=== PATIENT | female | born 1965 ===

== ENCOUNTER 2021-02-13 19:35 | Inpatient (IN) | payer OTHER ==
[~2021-02-13] VITALS: Ht 162.6 cm; Wt 81.0 kg
--- NOTE | 2021-02-13 19:45 | NUR ---
PT C/O OF LEFT SIDED KNEE PAIN. RIGHT KNEE APPERAS VERY SWOLLEN COMPARED TO LEFT KNEE. [facility] BELIEVES IT MAY BE DOSLOCATED. DEFORMITY NOTED. CMS INTACT DISTAL TO INJURY. PT STATES DOGS WERE PLAYING AROUND WHEN DOGS TOOK PT OUT. DENIES HEAD INJURY, AND LOC. PT REPORTS LANDING ON SOFT GRASS. ATTACHED TO MONITORS. VSS. NADN. PT IN GOWN. PANTS CUT OF TO VIEW KNEE. BED IN LOW, RAILS ENGAGED, CALL LIGHT ON LAP
--- NOTE | 2021-02-13 20:05 | NUR ---
Note kj in EDM - 02/13/21 at 2005 by [email or web address] Patient is resting comfortably in bed. Bed in lowest, rails engaged, call light on lap. Vital Signs within normal limits. 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
--- NOTE | 2021-02-13 20:07 | NUR ---
Patient is resting comfortably in bed. Bed in lowest, rails engaged, call light on lap. Vital Signs within normal limits. WCTM.
--- NOTE | 2021-02-13 20:08 | NUR ---
pt given 100 mcg of fentanyl and 2mg versed Addendum: 02/13/21 at 2008 by [email or web address] motorized squad captain
[2021-02-13] MEDS ORDERED: MORPHINE SULFATE 4 MG/ML, 1ML ONE (20:10)
[2021-02-13] MEDS ORDERED: ONDANSETRON 2MG/ML, 2ML ONE (20:10)
[2021-02-13] MEDS ORDERED: METHOCARBAMOL 750 MG TABLET ONE (20:19)
[2021-02-13] MEDS ORDERED: MORPHINE SULFATE 4 MG/ML, 1ML IVPush ONE (20:30)
[2021-02-13] MEDS ORDERED: ONDANSETRON 2MG/ML, 2ML IVPush ONE (20:30)
[2021-02-13] MEDS ORDERED: METHOCARBAMOL 750 MG TABLET PO ONE (20:30)
--- NOTE | 2021-02-13 20:31 | NUR ---
pt off unit in imaging. ice application applied 10 mins prior to left knee
[2021-02-13] MEDS ORDERED: HYDROmorphone 2 MG/ML, 1ML ONE (21:08)
[2021-02-13] MEDS ORDERED: HYDROmorphone 1 MG/ML, 1ML INJ IV ONE (21:30)
--- NOTE | 2021-02-13 21:33 | NUR ---
ERMD AT BEDSIDE.
--- NOTE | 2021-02-13 22:00 | NUR ---
LATE ENTRY DUE TO PT CARE. RECEIVED VERBAL ORDER FROM JOHN TO GIVE 0.5MG DILAUDID BEFORE PETALLAR RESET. VERBAL ORDER RECEIVED AND THIS NURSE VERBALIZED BACK FOR CORRECT MEDICATION ORDER
--- NOTE | 2021-02-13 22:14 | NUR ---
KNEE IMMOBILIZER APPLIED. CMS INTACT DISTAL TO INJURY.
--- NOTE | 2021-02-14 01:12 | NUR ---
PT ATTEMPTED TO USE CRUTCHES AND COULD NOT HANDLE THE PAIN. WHILE ATTEMPTING TO MOVE PT TO EDGE OF BED PTS PATELLA BONES DISLOCATED AND POPPED BACK INTO PLACE. NOTIFIED ER MD ABOUT SITUATION.
--- NOTE | 2021-02-14 01:13 | NUR ---
PT OFF UNIT IN IMAGING. NADN. NO ACUTE CHANGES. CMS INTACT DISTAL TO INJURY. STAN WRAP IS CURRENTLY ONLY DEVICE ON PT KNEE. WCTM
[2021-02-14] MEDS ORDERED: HYDROmorphone 1 MG/ML, 1ML INJ IV ONE (02:00)
[2021-02-14] MEDS ORDERED: LEVO25TA2 PO ×2 (02:06)
[2021-02-14] MEDS ORDERED: MELATONIN 5 MG TABLET PO PRN (02:30)
[2021-02-14] MEDS ORDERED: LABETALOL 5MG/ML, 20ML IVPush PRN (02:30)
[2021-02-14] MEDS ORDERED: POLYETHYLENE GLYCOL 17 GM PACKET PO PRN (02:30)
[2021-02-14] MEDS ORDERED: ONDANSETRON 2MG/ML, 2ML IVPush PRN (02:30)
[2021-02-14] MEDS ORDERED: BACLOFEN 10 MG TABLET PO PRN (02:30)
[2021-02-14] MEDS ORDERED: HYDROmorphone 2 MG/ML, 1ML IVPush PRN (02:30)
[2021-02-14] MEDS ORDERED: KETOROLAC 30 MG/1 ML IV PRN (02:30)
[2021-02-14 02:34] LABS: BASOPHILS % (AUTO) 0 % (0-1); EOSINOPHILS % (AUTO) 2 % (1-7); LYMPHOCYTES % (AUTO) 13 % (22-44); MEAN CORPUSCULAR HEMOGLOBIN 30.5 pg (27.0-34.8); MEAN CORPUSCULAR HGB CONC 33.6 g/dL (32.4-35.8); MEAN PLATELET VOLUME 8.1 fL (7.4-10.4); MONOCYTES % (AUTO) 6 % (2-9); NEUTROPHILS % (AUTO) 80 % (42-75); PLATELET COUNT 252 x10^3/uL (130-400); RED BLOOD COUNT 4.32 x10^6/uL (3.82-5.3); RED CELL DISTRIBUTION WIDTH 13.4 % (9.6-15.2)
[2021-02-14 02:42] LABS: ANION GAP 8 mmol/L (5-15); CALCIUM 8.5 mg/dL (8.5-10.1); CHLORIDE 104 mmol/L (98-107); CREATININE 0.59 mg/dL (0.55-1.02); PROTHROMBIN TIME 10.7 Seconds (9.6-11.5)
[2021-02-14 03:29] VITALS: BP 130/76
[2021-02-14] MEDS: OXYcodone IR 5MG TABLET PO PRN ×3 (04:23→15:09)
[2021-02-14] MEDS: ACETAMINOPHEN 325 MG TABLET PO PRN ×4 (04:23→22:40)
[2021-02-14] MEDS: LACTATED RINGERS 1,000 ML IV SCH (04:36)
[2021-02-14 07:19] VITALS: BP 112/60
[2021-02-14] MEDS: LEVOTHYROXINE 25 MCG TABLET PO SCH (08:49)
[2021-02-14] MEDS ORDERED: MAGNESIUM SULFATE PMX 2GM/50ML 50 ML IV ONE (11:00)
[2021-02-14 13:27] VITALS: BP 109/67
[2021-02-14 20:37] VITALS: BP 101/65
[2021-02-15 02:35] VITALS: BP_SYST 84; BP_SYST 85; BP_DIAS 49; BP_DIAS 53
[2021-02-15 05:22] LABS: BASOPHILS % (AUTO) 1 % (0-1); EOSINOPHILS % (AUTO) 5 % (1-7); LYMPHOCYTES % (AUTO) 26 % (22-44); MEAN CORPUSCULAR HEMOGLOBIN 30.9 pg (27.0-34.8); MEAN CORPUSCULAR HGB CONC 33.8 g/dL (32.4-35.8); MEAN PLATELET VOLUME 8.9 fL (7.4-10.4); MONOCYTES % (AUTO) 8 % (2-9); NEUTROPHILS % (AUTO) 61 % (42-75); PLATELET COUNT 231 x10^3/uL (130-400); RED BLOOD COUNT 4.02 x10^6/uL (3.82-5.3); RED CELL DISTRIBUTION WIDTH 13.8 % (9.6-15.2)
[2021-02-15 05:31] LABS: ANION GAP 7 mmol/L (5-15); CALCIUM 8.6 mg/dL (8.5-10.1); CHLORIDE 105 mmol/L (98-107); CREATININE 0.63 mg/dL (0.55-1.02)
[2021-02-15] MEDS: LACTATED RINGERS 1,000 ML IV SCH (06:00)
[2021-02-15] MEDS: LEVOTHYROXINE 25 MCG TABLET PO SCH (06:00)
[2021-02-15 07:15] VITALS: BP 127/72
[2021-02-15] MEDS: ACETAMINOPHEN 325 MG TABLET PO PRN (08:08)
[2021-02-15] MEDS ORDERED: ACET325T26 PO (10:16)
[2021-02-15] MEDS ORDERED: OXYC1TAB14 PO (10:22)
[2021-02-15 11:03] VITALS: BP 116/77
[2021-02-16] MEDS ORDERED: LACTATED RINGERS 1,000 ML IV SCH (02:30)
== END 2021-02-15 11:20 | disposition home or self-care (01) | DRG 563 ==
LOC: ED 02-14 03:13 → EDIP 02-14 03:14 → 4NE 02-14 03:15
PROVIDERS: ADMIT Internal Medicine; ATTEND Hospitalist
DX: S82.042A Displaced comminuted fracture of left patella, initial encounter for closed fracture (principal); E03.9 Hypothyroidism, unspecified; G89.11 Acute pain due to trauma; S83.015A Lateral dislocation of left patella, initial encounter; M22.00 Recurrent dislocation of patella, unspecified knee; Z20.822 Contact with and (suspected) exposure to COVID-19; W01.0XXA Fall on same level from slipping, tripping and stumbling without subsequent striking against object, initial encounter; Y93.01 Activity, walking, marching and hiking; Y92.89 Other specified places as the place of occurrence of the external cause; Y99.8 Other external cause status
CPT/HCPCS: 36415; 80048; 83735; 85025; 85610; 87635; 96374; 96375; 99285; G0378; J1170; J1885; J2405; J2270; J3475; J7120